=== PATIENT | female | born 1970 | race Two or more races ===

== ENCOUNTER → 2024-03-04 | Emergency (ER) | payer OTHER ==
[~2024-03-04] VITALS: Ht 157.5 cm; Wt 63.5 kg
[~2024-03-04] MED LIST: CEFTRIAXONE SODIUM 1,000 MG VIAL IM ONE; CEFTRIAXONE SODIUM 1,000 MG VIAL ONE; COMBIPATCH 0.01 EACH; ENDOMETRIN100 MG; KETOROLAC TROMETHAMINE 60 MG VIAL IM ONE; LIDOCAINE HCL 1% 10ML VIAL ONE
[2024-03-04 12:41] LABS: HEMOGLOBIN 13.7 g/dL (12.0-15.00); MEAN CELL VOLUME 94.9 fL (80.00-100.00); MEAN CORPUSCULAR HEMOGLOBIN 32.5 pg (27.00-32.0); MEAN CORPUSCULAR HGB CONC 34.3 g/dl (32.0-36.0); PLATELET COUNT 333 K/uL (150-450); RED BLOOD COUNT 4.21 M/uL (4.00-6.00)
[2024-03-04 13:00] LABS: CALCIUM 9.7 mg/dL (8.5-10.1); CREATININE SERUM 0.86 mg/dL (0.55-1.02); GFR 68.76; POTASSIUM 4.47 mEq/L (3.5-5.1)
[2024-03-04 13:03] LABS: URINE APPEARANCE Cloudy; URINE BACTERIA 1423.6 uL (0.0-1933); URINE BILIRRUBIN Negative (NEGATIVE); URINE BLOOD Large; URINE COLOR Red; URINE GLUCOSE Negative (NEGATIVE); URINE KETONE Negative (NEGATIVE); URINE LEUKOCYTE Large; URINE NITRATE Negative; URINE RBC 57.2 uL (0.0-20.8); URINE UROBILINOGEN 0.2 E.U./dl; URINE WBC 519.6 uL (0.0-23.2)
[2024-03-04 13:06] LABS: URINE CAST 0.15 uL (0.0-1.40); URINE EPITHELIAL CELLS 1.3 uL (0.0-38.8); URINE PROTEIN 100 (NEGATIVE)
== END | disposition home or self-care (01) ==
LOC: ER 10:35
PROVIDERS: General Practice
DX: N39.0 Urinary tract infection, site not specified (principal); Z20.822 Contact with and (suspected) exposure to COVID-19

== ENCOUNTER 2024-05-12 06:29 | Emergency (ER) | payer OTHER ==
[~2024-05-12] VITALS: Ht 157.5 cm; Wt 61.2 kg
[~2024-05-12 06:29] MED LIST changes: -CEFTRIAXONE SODIUM 1,000 MG VIAL IM ONE; -CEFTRIAXONE SODIUM 1,000 MG VIAL ONE; -KETOROLAC TROMETHAMINE 60 MG VIAL IM ONE; -LIDOCAINE HCL 1% 10ML VIAL ONE
[2024-05-12] MEDS ORDERED: KETOROLAC TROMETHAMINE 60 MG VIAL IM STA (08:40)
[2024-05-12 08:59] LABS: URINE APPEARANCE Cloudy; URINE BACTERIA 352.7 uL (0.0-1933); URINE BILIRRUBIN Negative (NEGATIVE); URINE BLOOD Large; URINE COLOR Dark Yellow; URINE EPITHELIAL CELLS 25.3 uL (0.0-38.8); URINE GLUCOSE Negative (NEGATIVE); URINE KETONE Negative (NEGATIVE); URINE LEUKOCYTE Negative; URINE NITRATE Positive; URINE PROTEIN Negative (NEGATIVE); URINE RBC 111.7 uL (0.0-20.8); URINE UROBILINOGEN 0.2 E.U./dl; URINE WBC 2.9 uL (0.0-23.2)
[2024-05-12 09:01] LABS: HEMATOCRIT 41.9 % (36.0-45.00); HEMOGLOBIN 14.5 g/dL (12.0-15.00); MEAN CELL VOLUME 94.8 fL (80.00-100.00); MEAN CORPUSCULAR HEMOGLOBIN 32.7 pg (27.00-32.0); MEAN CORPUSCULAR HGB CONC 34.5 g/dl (32.0-36.0); PLATELET COUNT 322 K/uL (150-450); RED BLOOD COUNT 4.41 M/uL (4.00-6.00); RED CELL DISTRIBUTION WIDTH 13.2 % (11.5-14.5)
[2024-05-12 09:06] LABS: URINE CAST 0.15 uL (0.0-1.40)
[2024-05-12 09:25] LABS: CALCIUM 9.5 mg/dL (8.5-10.1); CREATININE SERUM 0.84 mg/dL (0.55-1.02); GFR 70.65; POTASSIUM 4.39 mEq/L (3.5-5.1)
== END 2024-05-12 10:47 | disposition home or self-care (01) ==
LOC: ER 06:31
PROVIDERS: General Practice
DX: N39.0 Urinary tract infection, site not specified (principal); Z87.09 Personal history of other diseases of the respiratory system; Z88.8 Allergy status to other drugs, medicaments and biological substances